=== PATIENT | female | born 1955 | race Caucasian/White ===

== ENCOUNTER 2018-02-03 16:51 | Emergency (ER) | END 2018-02-03 16:56 | disposition left against medical advice (07) ==

== ENCOUNTER 2018-07-27 16:49 | Emergency (ER) | payer OTHER ==
[2018-02-03 16:56] VITALS: Ht 167.6 cm; Wt 168.0 kg
[~2018-07-27] VITALS: Ht 167.6 cm; Wt 168.0 kg
[2018-07-27] MEDS ORDERED: IPRATROPIUM (NEB) 0.5 MG/2.5 ML AMP INH STA (17:06)
[2018-07-27] MEDS ORDERED: SODIUM CHLORIDE 0.9% 1L BAG IV* STA (17:06)
[2018-07-27] MEDS ORDERED: ALBUTEROL 0.5% (NEB) 2.5 MG/0.5 ML AMP INH STA (17:06)
[2018-07-27] MEDS ORDERED: LEVOFLOXACIN 750MG/D5W (PMX) 150 ML IVPB STA (17:06)
[2018-07-27] MEDS ORDERED: SOD CHLORIDE 0.9% 2,000 ML IV STA (17:25)
--- NOTE | 2018-07-27 17:56 | ERD ---
ER Documentation Chief Complaint Chief Complaint HPI 63-year-old female brought in by ambulance from her home after she fell to the round transferring herself from the couch to her wheelchair. She only called ambulance to help her get up. She did not want to come to the hospital but ambulance brought her anyway. Patient is very angry and she does not want any medical treatment. She has no complaints at this time other than being in the hospital. ROS All systems reviewed and are negative except as per history of present illness. Medications Home Meds Reported Medications Gabapentin* (Gabapentin*) 400 Mg Capsule, 400 MG PO TID 07/27/18 Ropinirole Hcl* (Ropinirole Hcl*) 5 Mg Tablet, 5 MG PO BID 07/27/18 Metoprolol Succinate* (Toprol XL*) 25 Mg Tab.sr.24h, 25 MG PO DAILY, #30 TAB 07/27/18 Insulin Lispro (Humalog) 100 Unit/1 Ml Cartridge, 10 UNIT SQ AC E, EA 07/27/18 Insulin Glargine* (Lantus*) 100 Unit/Ml Soln, 20 UNIT SC BID, #1 VIAL 07/27/18 Allergies Allergies: Coded Allergies: No Known Allergy (Unverified , 02/03/18) PMhx/Soc Hx Miscellaneous Medical Probl: Yes (Diabetes) FmHx Family History: No coronary disease Physical Exam Vitals Vital Signs Date Temp Pulse Resp B/P (MAP) Pulse Ox O2 O2 Flow FiO2 Time Delivery Rate 07/27/18 97.7 105 12 161/96 97 Room Air 18:30 (117) 07/27/18 97.7 113 12 161/96 97 17:16 (117) Physical Exam Const: No acute distress, obese Head: Atraumatic Eyes: Normal Conjunctiva ENT: Normal External Ears, Nose and Mouth. Neck: Full range of motion. No meningismus. Resp: Clear to auscultation bilaterally Cardio: Tachycardic with regular rhythm, no murmurs Abd: Soft, non tender, non distended. Normal bowel sounds Skin: No petechiae or rashes. No ecchymoses Back: No midline or flank tenderness Ext: No cyanosis, or edema. Normal to inspection and palpation Neur: Awake and alert, oriented x3, no facial asymmetry, normal speech, moving all extremities spontaneously Psych: Very angry and agitated easily Result Diagram: 07/27/18 1844 07/27/18 1845 Results 24 hrs Laboratory Tests Test 07/27/18 18:44 07/27/18 18:45 White Blood Count 9.3 10^3/ul Red Blood Count 3.98 10^6/ul Hemoglobin 11.9 g/dl Hematocrit 35.5 % Mean Corpuscular Volume 89.2 fl Mean Corpuscular Hemoglobin 29.9 pg Mean Corpuscular Hemoglobin Concent 33.5 g/dl Red Cell Distribution Width 12.2 % Platelet Count 283 10^3/UL Mean Platelet Volume 9.9 fl Immature Granulocytes % 0.400 % Neutrophils % 75.3 % Lymphocytes % 15.7 % Monocytes % 6.9 % Eosinophils % 1.5 % Basophils % 0.2 % Nucleated Red Blood Cells % 0.0 /100WBC Immature Granulocytes # 0.040 10^3/ul Neutrophils # 7.0 10^3/ul Lymphocytes # 1.5 10^3/ul Monocytes # 0.6 10^3/ul Eosinophils # 0.1 10^3/ul Basophils # 0.0 10^3/ul Nucleated Red Blood Cells # 0.0 10^3/ul Sodium Level 137 mmol/L Potassium Level 4.5 mmol/L Chloride Level 103 mmol/L Carbon Dioxide Level 27 mmol/L Anion Gap 7 Blood Urea Nitrogen 25 mg/dl Creatinine 0.83 mg/dl Est Glomerular Filtrat Rate mL/min > 60 mL/min Glucose Level 450 mg/dl Calcium Level 9.7 mg/dl Current Medications Medications Dose Sig/[place] Start Time Status Last (Trade) Ordered Route PRN Stop Time Admin Dose Reason Admin Sodium 1,780 ml BOLUS OVER 2 07/27/18 DC Chloride HOURS STAT 17:06 07/27/18 (NS) IV* 17:12 150 ml @ ONCE STAT 07/27/18 DC Levofloxacin/ 100 mls/hr IVPB 17:06 07/27/18 Dextrose 17:12 Ipratropium 1.5 mg ONCE STAT 07/27/18 DC [place] INH 17:06 07/27/18 (Atrovent 17:12 0.02% (Neb)) Albuterol 15 mg ONCE STAT 07/27/18 DC (Proventil INH 17:06 07/27/18 0.5% (Neb)) 17:12 Sodium 2,000 ml @ Q1H STAT 07/27/18 DC Chloride 2,000 mls/hr IV 17:25 07/27/18 18:24 Procedures/MDM EMERGENT LABS AND DIAGNOSTIC STUDIES: Lab Results above were reviewed and interpreted by me. CBC: Mild anemia, no evidence of infection BMP: Hyperglycemic without evidence of acidosis. Slightly elevated BUN likely secondary to dehydration. 12-lead EKG was interpreted by Marisel Lynne MD: Sinus tachycardia at 106 bpm Normal axis Normal intervals No acute ST or T wave changes suggestive of acute ischemia or STEMI. Initial Nursing notes reviewed. Previous Medical Records requested via the Electronic Health Record. EMERGENCY DEPARTMENT COURSE / MEDICAL DECISION MAKING: Patient is presenting with hyperglycemia and after a fall at home. She has no complaints at this time and would like to go home. She was noted to be tachycardic and hypertensive. We convinced the patient to do a blood draw because initially she was refusing all care. She was noted to be hyperglycemic without any other significant abnormalities. However she does not want treatment and states "I know how to take care of my diabetes at home". The patient has made the decision to leave this Emergency Department and any ongoing care against the advice of the emergency physician. The patient has been informed of and verbalized understanding of the inherent risks of this decision, including , disability. The patient explained to me the reason for wanting to sign out against medical advice which was she does not want to be in the h ospital and would like to be at home. The patient has the capacity to make this decision and accepts the responsibility of leaving at this time. The patient and all necessary parties have been advised that the patient may return at any time for further evaluation or treatment. The patient's condition at time of discharge is fair. Departure Diagnosis: Primary Impression: Hyperglycemia Condition: Fair RACHAEL LYNNE MD Jul 27, 2018 17:56
[2018-07-27] MEDS ORDERED: LANT3I SC (18:05)
[2018-07-27] MEDS ORDERED: INSU100C SQ (18:06)
[2018-07-27] MEDS ORDERED: METO-335 PO (18:06)
[2018-07-27] MEDS ORDERED: ROPI5TAB4 PO (18:07)
[2018-07-27] MEDS ORDERED: GABA400C14 PO (18:07)
[2018-07-27] MEDS ORDERED: ACETAMINOPHEN 325 MG TAB PO ONE (22:00)
[2018-07-27] MEDS ORDERED: NICARDipine HCL 30 MG CAPSULE PO ONE (23:00)
[2018-07-27 23:10] VITALS: BP 168/100; PULSE 91; RESP 12
== END 2018-07-27 23:11 | disposition left against medical advice (07) ==
LOC: E/R 16:49
DX: E11.65 Type 2 diabetes mellitus with hyperglycemia (principal); R53.1 Weakness; Z79.4 Long term (current) use of insulin
CPT/HCPCS: 80048; 85025; 93005; 99284; J7030